=== PATIENT | male | born 1965 | race Caucasian/White ===

== ENCOUNTER 2019-02-09 07:38 | Day surgery (SDC) | payer BC ==
[~2019-02-09 07:38] MED LIST: Acetaminophen TAB* 325 MG PO PRN; Buffered Lidocaine 1% SYRIN* 1 ML/SYRINGE INTRADERM ONE
[2019-02-09] MEDS ORDERED: Cyclopentolate 1% OPTH.SOL* 2 ML BTL ONE (10:01)
[2019-02-09] MEDS ORDERED: Lidocaine 1%* 5 ML VIAL ONE (10:01)
[2019-02-09] MEDS ORDERED: Lidocaine 2% EPI 1:200000 MPF*10-20 ML VIAL ONE (10:01)
[2019-02-09] MEDS ORDERED: Ketorolac 0.5% OPHTH (NF) 0.5 % 5 ML BTL ONE (10:01)
[2019-02-09] MEDS ORDERED: Proparacaine 0.5% OPHTH.SOL* 15 ML BTL ONE (10:01)
[2019-02-09] MEDS ORDERED: Povidone Iodine 5% OPTH* 30 ML BTL ONE (10:01)
[2019-02-09] MEDS ORDERED: Neomycin/Polymy/Dex OPTH.SUSP* MAXITROL 0.1% 5 ML ONE (10:01)
[2019-02-09] MEDS ORDERED: Phenylephrine OPHTH SOL 2.5%* 2 ML ONE (10:01)
[2019-02-09] MEDS ORDERED: acetaZOLAMIDE TAB* 250 MG ONE (10:01)
[2019-02-09] MEDS ORDERED: Midazolam* 1 MG/ML 2 ML VIAL (2 MG) ONE ×2 (10:14→10:24)
--- NOTE | 2019-02-09 10:59 | OP ---
OPERATIVE NOTE: DATE OF OPERATION: 02/09/19 DATE OF : 67 SURGEON: Neo Alvarez M.D. PREOPERATIVE DIAGNOSIS: Cataract, right eye. POSTOPERATIVE DIAGNOSIS: Cataract, right eye. OPERATIVE PROCEDURE: Extracapsular cataract extraction with intraocular lens implant, right eye. PROCEDURE: The patient was brought to the operating room after being given 1/2% Alcaine with epineph rine drops in the preoperative area. The eye was prepped and draped in the usual sterile fashion. S terile drape and eyelid speculum were placed. Again, topical 1/2% Alcaine with epinephrine was given . A paracentesis incision was made at the 9 o'clock position with the No.75 blade. Clear cornea inc ision 2.2 x 2.2-mm was created at the 12 o'clock position starting at the anterior limbus using the 2 .2-mm keratome. The anterior chamber was irrigated with 0.4 mL of 1% non-preservative intracameral l idocaine and filled with DisCoVisc. A capsulorrhexis was completed using the cystotome and the Utrat a forceps. Hydrodissection was performed with balanced salt solution. The lens nucleus was removed w ith the Phacoemulsification handpiece without incident. Cortex was removed with the irrigation-aspir ation handpiece. The capsular bag was re-inflated using DisCoVisc and an SN60WF 20.5 implant was ins erted with the shooter. The irrigation-aspiration handpiece was used to remove all residual DisCoVis c. The eye was refilled with balanced salt solution and the wound checked and found to be watertight . Topical Maxitrol drops were given. [id number]/[facility] #: [id number]
[2019-02-09 11:09] VITALS: BP 126/70
== END 2019-02-09 10:55 | disposition home or self-care (01) ==
LOC: OREAST 07:38
PROVIDERS: ATTEND Specialist
DX: H25.11 Age-related nuclear cataract, right eye (principal); I10 Essential (primary) hypertension; E78.00 Pure hypercholesterolemia, unspecified; Z72.0 Tobacco use; E11.9 Type 2 diabetes mellitus without complications; G47.33 Obstructive sleep apnea (adult) (pediatric); J44.9 Chronic obstructive pulmonary disease, unspecified
CPT/HCPCS: A9270-GY; J2250; V2632

== ENCOUNTER 2019-02-16 06:56 | Day surgery (SDC) | payer BC ==
[~2019-02-16 06:56] MED LIST changes: -Acetaminophen TAB* 325 MG PO PRN
[2019-02-16] MEDS ORDERED: Midazolam* 1 MG/ML 2 ML VIAL (2 MG) ONE (08:06)
[2019-02-16] MEDS ORDERED: fentaNYL* 50 MCG/ML 2 ML VIAL (100 MCG VIAL) ONE (08:06)
[2019-02-16 09:03] VITALS: BP 115/68
[2019-02-16] MEDS ORDERED: Proparacaine 0.5% OPHTH.SOL* 15 ML BTL ONE (10:04)
[2019-02-16] MEDS ORDERED: Ketorolac 0.5% OPHTH (NF) 0.5 % 5 ML BTL ONE (10:04)
[2019-02-16] MEDS ORDERED: acetaZOLAMIDE TAB* 250 MG ONE (10:04)
[2019-02-16] MEDS ORDERED: Neomycin/Polymy/Dex OPTH.SUSP* MAXITROL 0.1% 5 ML ONE (10:04)
[2019-02-16] MEDS ORDERED: Phenylephrine OPHTH SOL 2.5%* 2 ML ONE (10:04)
[2019-02-16] MEDS ORDERED: Lidocaine 2% EPI 1:200000 MPF*10-20 ML VIAL ONE (10:04)
[2019-02-16] MEDS ORDERED: Cyclopentolate 1% OPTH.SOL* 2 ML BTL ONE (10:04)
[2019-02-16] MEDS ORDERED: Povidone Iodine 5% OPTH* 30 ML BTL ONE (10:04)
[2019-02-16] MEDS ORDERED: Lidocaine 1%* 5 ML VIAL ONE (10:04)
--- NOTE | 2019-02-16 11:20 | OP ---
OPERATIVE NOTE: DATE OF OPERATION: 02/16/19 DATE OF : 67 SURGEON: Neo Alvarez MD PREOPERATIVE DIAGNOSIS: Cataract, left eye. POSTOPERATIVE DIAGNOSIS: Cataract, left eye. OPERATIVE PROCEDURE: Extracapsular cataract extraction with intraocular lens implant, left eye. PROCEDURE: The patient was brought to the operating room after being given 1/2% Alcaine with epineph rine drops in the preoperative area. The eye was prepped and draped in the usual sterile fashion. S terile drape and eyelid speculum were placed. Again, topical 1/2% Alcaine with epinephrine was given . A paracentesis incision was made at the 3 o'clock position with the No.75 blade. Clear cornea inc ision 2.2 x 2.2-mm was created at the 6 o'clock position starting at the anterior limbus using the 2. 2-mm keratome. The anterior chamber was irrigated with 0.4 mL of 1% non-preservative intracameral li docaine and filled with DisCoVisc. A capsulorrhexis was completed using the cystotome and the Utrata forceps. Hydrodissection was performed with balanced salt solution. The lens nucleus was removed wi th the Phacoemulsification handpiece without incident. Cortex was removed with the irrigation-aspira tion handpiece. The capsular bag was re-inflated using DisCoVisc and an SN60WF 20 diopter implant wa s inserted with the shooter. The irrigation-aspiration handpiece was used to remove all residual DisC oVisc. The eye was refilled with balanced salt solution and the wound checked and found to be watert ight. Topical Maxitrol drops were given. [id number]/[facility] #: [id number]
[2019-02-17] MEDS ORDERED: Acetaminophen TAB* 325 MG PO PRN (05:00)
== END 2019-02-16 09:04 | disposition home or self-care (01) ==
LOC: OREAST 06:56
PROVIDERS: ATTEND Specialist
DX: H25.12 Age-related nuclear cataract, left eye (principal); E11.9 Type 2 diabetes mellitus without complications; Z72.0 Tobacco use; I10 Essential (primary) hypertension; E78.00 Pure hypercholesterolemia, unspecified; G47.33 Obstructive sleep apnea (adult) (pediatric); J44.9 Chronic obstructive pulmonary disease, unspecified
CPT/HCPCS: A9270-GY; J2250; J3010; V2632